=== PATIENT | female | born 1950 | race Native Hawaiian/Other Pacific Islander ===

== ENCOUNTER 2017-12-09 15:14 | Observation (INO) | payer OTHER ==
[~2017-12-09] VITALS: Ht 165.1 cm; Wt 72.1 kg
[2017-12-09 16:31] VITALS: BP 140/62; TEMP 98.2; Ht 165.1 cm; Wt 72.1 kg
[2017-12-09 16:51] LABS: PLATELET COUNT 218 K/uL (152-353)
[2017-12-09 20:00] VITALS: BP 127/50; TEMP 97.4
[2017-12-10] VITALS (13 sets, daily range): BP systolic 101–150; BP diastolic 39–102; TEMP 97.2–98.7
[2017-12-10 05:37] LABS: PLATELET COUNT 155 K/uL (152-353)
[2017-12-10 05:48] LABS: POTASSIUM 3.2 mmol/L (3.6-5.2)
[2017-12-11 03:58] VITALS: BP 119/43; TEMP 97.6
[2017-12-11 05:43] LABS: PLATELET COUNT 163 K/uL (152-353)
[2017-12-11 05:49] LABS: POTASSIUM 3.6 mmol/L (3.6-5.2)
[2017-12-11 07:49] VITALS: BP 99/44; TEMP 98.3
[2017-12-11] MEDS ORDERED: CIPRO500 MG PO (10:43)
[2017-12-11] MEDS ORDERED: METR250T19 PO (10:43)
== END 2017-12-11 11:20 | disposition home or self-care (01) ==
LOC: MED/SURG 15:14
PROC: 0DJ08ZZ Inspection of Upper Intestinal Tract, Via Natural or Artificial Opening Endoscopic (ICD-10-PCS; principal; 2017-12-10)
DX: K52.89 Other specified noninfective gastroenteritis and colitis (principal); R10.84 Generalized abdominal pain; A08.8 Other specified intestinal infections; K44.9 Diaphragmatic hernia without obstruction or gangrene; R13.11 Dysphagia, oral phase
CPT/HCPCS: 36415; 80053; 81000; 82150; 83690; 85027; 85651; 87015; 87045; 87205; 87899; 93005; 94760; 96366; 96367; 99220; G0378; G0379; J0744; J2001; J2250; J2704; J3490

== ENCOUNTER 2018-01-06 12:18 | Outpatient (CLI) | payer OTHER ==
[~2018-01-06 12:18] MED LIST: CIPRO500 MG PO; METR250T19 PO
== END 2018-01-06 23:05 | disposition home or self-care (01) ==
LOC: RAD 12:18
DX: M25.551 Pain in right hip (principal)

== ENCOUNTER 2018-01-17 09:44 | Outpatient (CLI) | payer OTHER | END 2018-01-17 19:44 | disposition home or self-care (01) | LOC: MAMMO 09:44 | DX: Z12.31 Encounter for screening mammogram for malignant neoplasm of breast (principal); M81.0 Age-related osteoporosis without current pathological fracture ==

== ENCOUNTER 2018-02-27 09:24 | Outpatient (CLI) | payer OTHER | END 2018-02-27 23:18 | disposition home or self-care (01) | LOC: US 09:24 | DX: N63.0 Unspecified lump in unspecified breast (principal) ==

== ENCOUNTER 2018-08-04 14:28 | Outpatient (CLI) | payer OTHER | END 2018-08-04 19:49 | disposition home or self-care (01) | LOC: RAD 14:28 | DX: M54.31 Sciatica, right side (principal) ==

== ENCOUNTER 2018-09-24 09:27 | Outpatient (CLI) | payer OTHER | END 2018-09-24 19:44 | disposition home or self-care (01) | LOC: MRI 09:27 | DX: M54.14 Radiculopathy, thoracic region (principal); M54.17 Radiculopathy, lumbosacral region ==

== ENCOUNTER 2020-11-15 11:37 | Emergency (ER) | payer OTHER ==
[~2020-11-15] VITALS: Ht 165.1 cm; Wt 61.7 kg
[2020-11-15 11:37] VITALS: TEMP 98.6
[2020-11-15 13:52] VITALS: BP 134/52
== END 2020-11-15 13:52 | disposition home or self-care (01) ==
LOC: ED 11:37
DX: M51.36 Other intervertebral disc degeneration, lumbar region (principal)
CPT/HCPCS: 96372; 96374; 99284; J1885

== ENCOUNTER 2021-01-23 09:12 | Outpatient (CLI) | payer OTHER | END 2021-01-23 22:37 | disposition home or self-care (01) | LOC: LAB 09:12 | PROVIDERS: ATTEND Surgery | DX: Z01.818 Encounter for other preprocedural examination (principal); R10.84 Generalized abdominal pain; Z11.52 Encounter for screening for COVID-19 | CPT/HCPCS: 87635; G2023; U0003 ==

== ENCOUNTER 2021-07-03 14:41 | Outpatient (CLI) | payer OTHER | END 2021-07-03 19:56 | disposition home or self-care (01) | LOC: RAD 14:41 | PROVIDERS: ATTEND Registered Nurse | DX: R06.09 Other forms of dyspnea (principal) ==

== ENCOUNTER 2021-08-01 10:56 | Outpatient (CLI) | payer OTHER | END 2021-08-01 19:20 | disposition home or self-care (01) | LOC: CT 10:56 | PROVIDERS: ATTEND Nurse Practitioner Family | DX: F17.210 Nicotine dependence, cigarettes, uncomplicated (principal) ==

== ENCOUNTER 2021-08-30 07:55 | Outpatient (CLI) | payer OTHER | END 2021-08-30 19:06 | disposition home or self-care (01) | LOC: RESP 07:55 | PROVIDERS: ATTEND Nurse Practitioner Family | DX: J43.2 Centrilobular emphysema (principal); I25.10 Atherosclerotic heart disease of native coronary artery without angina pectoris ==

== ENCOUNTER 2021-09-14 07:54 | Outpatient (CLI) | payer OTHER ==
[~2021-09-14] VITALS: Ht 162.6 cm; Wt 68.0 kg
== END 2021-09-14 19:55 | disposition home or self-care (01) ==
LOC: NM 07:54
PROVIDERS: ATTEND Nurse Practitioner Family
DX: I25.10 Atherosclerotic heart disease of native coronary artery without angina pectoris (principal)
CPT/HCPCS: A9500; J2785

== ENCOUNTER 2022-01-18 10:46 | Outpatient (CLI) | payer OTHER | END 2022-01-18 22:25 | disposition home or self-care (01) | LOC: RAD 10:46 | PROVIDERS: ATTEND Nurse Practitioner Family | DX: R05.1 Acute cough (principal) ==

== ENCOUNTER 2022-03-22 16:54 | Outpatient (CLI) | payer OTHER | END 2022-03-22 19:27 | disposition home or self-care (01) | LOC: RAD 16:54 | PROVIDERS: ATTEND Nurse Practitioner Family | DX: M25.551 Pain in right hip (principal) ==

== ENCOUNTER 2022-09-24 10:11 | Emergency (ER) | payer OTHER ==
[~2022-09-24] VITALS: Ht 162.6 cm; Wt 81.6 kg
[2022-09-24 10:13] VITALS: TEMP 97.8
[2022-09-24 10:39] LABS: PLATELET COUNT 207 K/uL (152-353)
[2022-09-24 10:47] LABS: POTASSIUM 5.1 mmol/L (3.6-5.2)
[2022-09-24 11:32] VITALS: BP 177/84
== END 2022-09-24 11:35 | disposition home or self-care (01) ==
LOC: ED 10:11
PROVIDERS: Emergency Medicine Emergency Medical Services
DX: G51.0 Bell's palsy (principal); Z79.899 Other long term (current) drug therapy
CPT/HCPCS: 80053; 83735; 84484; 85027; 93005; 96374; 99284; J2930

== ENCOUNTER 2023-04-11 10:40 | Outpatient (CLI) | payer OTHER | END 2023-04-11 19:03 | disposition home or self-care (01) | LOC: RAD 10:40 | PROVIDERS: ATTEND Physician Assistant | DX: M25.551 Pain in right hip (principal); M25.552 Pain in left hip; M25.562 Pain in left knee ==